=== PATIENT | male | born 1945 | race Caucasian/White ===

== ENCOUNTER 2017-12-18 08:31 | Outpatient (CLI) | payer MEDICARE, OTHER ==
[~2017-12-18 08:31] MED LIST: ASPI-1265 PO; ATOR10TA PO; CELE-193 PO; CHOL400T PO; CLOP75TA15 PO; MULT-785 PO; ZOLP10TA PO
== END 2017-12-18 23:59 | disposition home or self-care (01) ==
LOC: VAS 08:31
PROVIDERS: ATTEND Orthopaedic Surgery
DX: M79.604 Pain in right leg (principal); R59.0 Localized enlarged lymph nodes; Z79.01 Long term (current) use of anticoagulants; Z98.890 Other specified postprocedural states
CPT/HCPCS: 93970

== ENCOUNTER 2019-03-18 01:57 | Emergency (ER) | payer MEDICARE, OTHER ==
[~2019-03-18] VITALS: Ht 175.3 cm; Wt 74.0 kg
--- NOTE | 2019-03-18 02:56 | NUR ---
Patient resting comfortably on hospital [facility] waiting for MD to examin
[2019-03-18] MEDS ORDERED: SULF1TAB48 PO (03:34)
[2019-03-18] MEDS ORDERED: sulfamethoxazole/trimethoprim DS (800/160mg) tablet PO ONE (03:35)
[2019-03-18] MEDS ORDERED: LIDOcaine 1% w/epiNEPHrine 1:200,000 30ml vial IJ ONE (03:35)
[2019-03-18 04:49] VITALS: BP 169/89
== END 2019-03-18 04:53 | disposition home or self-care (01) ==
LOC: ER 01:58
DX: S81.812A Laceration without foreign body, left lower leg, initial encounter (principal); I25.10 Atherosclerotic heart disease of native coronary artery without angina pectoris; E78.00 Pure hypercholesterolemia, unspecified; Z90.89 Acquired absence of other organs; Z98.890 Other specified postprocedural states; Z88.0 Allergy status to penicillin; Z88.1 Allergy status to other antibiotic agents; Z88.5 Allergy status to narcotic agent; Z88.6 Allergy status to analgesic agent; Z88.8 Allergy status to other drugs, medicaments and biological substances; Z79.82 Long term (current) use of aspirin; Z79.899 Other long term (current) drug therapy; W26.8XXA Contact with other sharp object(s), not elsewhere classified, initial encounter; Y93.89 Activity, other specified; Y92.89 Other specified places as the place of occurrence of the external cause; Y99.8 Other external cause status
CPT/HCPCS: 12004; 99284; J3490

== ENCOUNTER 2019-03-26 12:31 | Emergency (ER) | payer MEDICARE, OTHER ==
[~2019-03-26] VITALS: Ht 175.3 cm; Wt 72.7 kg
[~2019-03-26 12:31] MED LIST changes: +SULF1TAB48 PO
[2019-03-26 12:44] VITALS: BP 131/77
== END 2019-03-26 13:06 | disposition home or self-care (01) ==
LOC: ER 12:31
DX: S81.812D Laceration without foreign body, left lower leg, subsequent encounter (principal); I25.10 Atherosclerotic heart disease of native coronary artery without angina pectoris; E78.00 Pure hypercholesterolemia, unspecified; Z98.890 Other specified postprocedural states; Z95.1 Presence of aortocoronary bypass graft; Z88.0 Allergy status to penicillin; Z88.1 Allergy status to other antibiotic agents; Z88.5 Allergy status to narcotic agent; Z79.82 Long term (current) use of aspirin; Z79.899 Other long term (current) drug therapy; W26.8XXD Contact with other sharp object(s), not elsewhere classified, subsequent encounter
CPT/HCPCS: 99281

== ENCOUNTER 2020-12-28 19:33 | Emergency (ER) | payer MEDICARE, BC ==
[~2020-12-28] VITALS: Ht 175.3 cm; Wt 71.2 kg
[~2020-12-28 19:33] MED LIST changes: -SULF1TAB48 PO
[2020-12-28 19:36] VITALS: BP 180/94
== END 2020-12-28 21:02 | disposition home or self-care (01) ==
LOC: ER 19:34
DX: S01.302A Unspecified open wound of left ear, initial encounter (principal); I25.10 Atherosclerotic heart disease of native coronary artery without angina pectoris; E78.00 Pure hypercholesterolemia, unspecified; Z98.890 Other specified postprocedural states; Z98.61 Coronary angioplasty status; Z88.0 Allergy status to penicillin; Z88.1 Allergy status to other antibiotic agents; Z88.8 Allergy status to other drugs, medicaments and biological substances; Z88.6 Allergy status to analgesic agent; Z91.041 Radiographic dye allergy status; Z91.013 Allergy to seafood; Z79.82 Long term (current) use of aspirin; Z79.899 Other long term (current) drug therapy; Z85.9 Personal history of malignant neoplasm, unspecified; W45.0XXA Nail entering through skin, initial encounter; Y93.89 Activity, other specified; Y92.89 Other specified places as the place of occurrence of the external cause; Y99.8 Other external cause status
CPT/HCPCS: 99283

== ENCOUNTER 2022-04-09 15:51 | Emergency (ER) | payer MEDICARE, BC ==
[~2022-04-09] VITALS: Ht 175.3 cm; Wt 72.7 kg
[2022-04-09 17:46] LABS: CLARITY,URINE CLEAR (Clear); COLOR,URINE YELLOW (Yellow); GLUCOSE, URINE NEGATIVE (Neg); KETONES,URINE NEGATIVE (Neg); LEUKOCYTE ESTERASE ,URINE NEGATIVE (Neg); NITRITES, URINE NEGATIVE (Neg); OCCULT BLOOD,URINE SMALL (Neg); PROTEIN,URINE NEGATIVE (Neg); UROBILINOGEN,URINE 0.2 E.U/dL (0.2-1.0)
[2022-04-09 17:48] LABS: UA COLLECTION TYPE CLN CATCH MIDSTREAM
[2022-04-09 17:52] LABS: BACTERIA,URINE FEW /HPF (Neg); SQUAMOUS EPITHELIAL CELL,UR FEW /LPF (FEW); WBC,URINE 0-4 /HPF (0-4)
[2022-04-09 17:53] LABS: MUCUS STRANDS FEW /LPF (Neg)
[2022-04-09 18:06] LABS: BASOPHILS # (AUTO) 0.1 X10'3 (0-0.2); BASOPHILS % (AUTO) 0.3 % (0-1); EOSINOPHILS # (AUTO) 0.1 X10'3 (0-0.9); EOSINOPHILS % (AUTO) 0.5 % (0-6); HEMATOCRIT 36.2 % (42.0-52.0); LYMPHOCYTES # (AUTO) 0.8 X10'3 (1.1-4.8); LYMPHOCYTES % (AUTO) 4.8 % (21-51); MEAN CORPUSCULAR HEMOGLOBIN 30.1 PG (27.0-31.0); MEAN CORPUSCULAR HGB CONC 33.1 g/dL (33.0-36.5); MEAN CORPUSCULAR VOLUME 90.9 FL (78-98); MEAN PLATELET VOLUME 7.4 FL (7.4-10.4); MONOCYTES # (AUTO) 1.2 X10'3 (0-0.9); MONOCYTES % (AUTO) 7.4 % (2-12); NEUTROPHILS # (AUTO) 14.4 X10'3 (1.8-7.7); PLATELET COUNT 369 X10'3 (140-440); RED BLOOD COUNT 3.98 X10'6 (4.70-6.10); RED CELL DISTRIBUTION WIDTH 14.9 % (11.5-14.5); WHITE BLOOD COUNT 16.5 X10'3 (4.5-11.0)
[2022-04-09 18:18] LABS: ALANINE AMINOTRANSFERASE 23 U/L (12-78); ALBUMIN 2.9 G/DL (3.4-5.0); ALBUMIN/GLOBULIN RATIO 0.8 (1.1-1.5); ALKALINE PHOSPHATASE 83 IU/L (46-116); AMYLASE 61 U/L (25-115); ANION GAP 10 (8-16); ASPARTATE AMINO TRANSFERASE 28 U/L (10-37); BILIRUBIN,TOTAL 0.5 MG/DL (0.1-1.0); BLOOD UREA NITROGEN 28 MG/DL (7-18); BUN/CREATININE RATIO 20.9 (5.4-32.0); CALCIUM 8.9 MG/DL (8.5-10.1); CHLORIDE 109 MMOL/L (99-107); CREATININE 1.34 MG/DL (0.60-1.10); GLUCOSE 104 MG/DL (70-104); LIPASE 111 U/L (73-393); POTASSIUM 4.4 MMOL/L (3.5-5.1); SODIUM 143 MMOL/L (135-145); TOTAL CARBON DIOXIDE 24.4 MMOL/L (24-32); TOTAL PROTEIN 6.7 G/DL (6.4-8.2); eGFR 52 ML/MIN
[2022-04-09] MEDS ORDERED: normal saline 1000ML IV soln IVB ONE (20:05)
[2022-04-09] MEDS ORDERED: CefTRIAXone 2gm/NS 100ml IVPB 100 ML IV ONE (20:05)
[2022-04-09 22:25] VITALS: BP 149/86
[2022-04-11] MEDS ORDERED: LEVO500T90 PO (08:10)
== END 2022-04-09 22:27 | disposition home or self-care (01) ==
LOC: ER 15:52
DX: R50.9 Fever, unspecified (principal); R53.83 Other fatigue; R19.7 Diarrhea, unspecified; R11.0 Nausea; I25.10 Atherosclerotic heart disease of native coronary artery without angina pectoris; E78.00 Pure hypercholesterolemia, unspecified; Z85.9 Personal history of malignant neoplasm, unspecified; Z98.890 Other specified postprocedural states; Z88.0 Allergy status to penicillin; Z88.1 Allergy status to other antibiotic agents; Z88.8 Allergy status to other drugs, medicaments and biological substances; Z91.013 Allergy to seafood; Z79.82 Long term (current) use of aspirin; Z79.899 Other long term (current) drug therapy
CPT/HCPCS: 36415; 71250; 74176; 80053; 81001; 82150; 83605; 83690; 84145; 85025; 87040; 99285; J0696; J7030

== ENCOUNTER 2022-04-12 08:33 | Inpatient (IN) | payer MEDICARE, BC ==
[~2022-04-12] VITALS: Ht 175.3 cm; Wt 70.5 kg
[~2022-04-12 08:33] MED LIST changes: +LEVO500T90 PO
[2022-04-12] MEDS ORDERED: ceFAZolin/D5W- 1GM premix 50 ML IV STA (08:38)
[2022-04-12 09:11] LABS: BASOPHILS # (AUTO) 0.1 X10'3 (0-0.2); BASOPHILS % (AUTO) 0.4 % (0-1); EOSINOPHILS # (AUTO) 0.1 X10'3 (0-0.9); EOSINOPHILS % (AUTO) 0.5 % (0-6); HEMOGLOBIN 12.5 g/dl (14.0-17.9); LYMPHOCYTES # (AUTO) 0.6 X10'3 (1.1-4.8); MEAN CORPUSCULAR HEMOGLOBIN 30.5 PG (27.0-31.0); MEAN CORPUSCULAR HGB CONC 33.7 g/dL (33.0-36.5); MEAN CORPUSCULAR VOLUME 90.4 FL (78-98); MEAN PLATELET VOLUME 7.6 FL (7.4-10.4); MONOCYTES # (AUTO) 0.7 X10'3 (0-0.9); MONOCYTES % (AUTO) 4.4 % (2-12); NEUTROPHILS % (AUTO) 90.7 % (42-75); PLATELET COUNT 484 X10'3 (140-440); RED BLOOD COUNT 4.09 X10'6 (4.70-6.10); RED CELL DISTRIBUTION WIDTH 14.9 % (11.5-14.5); WHITE BLOOD COUNT 15.4 X10'3 (4.5-11.0)
[2022-04-12 09:19] LABS: ALANINE AMINOTRANSFERASE 19 U/L (12-78); ALBUMIN 2.6 G/DL (3.4-5.0); ALBUMIN/GLOBULIN RATIO 0.6 (1.1-1.5); ALKALINE PHOSPHATASE 83 IU/L (46-116); ANION GAP 8 (8-16); ASPARTATE AMINO TRANSFERASE 26 U/L (10-37); BILIRUBIN,TOTAL 0.5 MG/DL (0.1-1.0); BLOOD UREA NITROGEN 20 MG/DL (7-18); BUN/CREATININE RATIO 15.7 (5.4-32.0); CALCIUM 8.7 MG/DL (8.5-10.1); CHLORIDE 107 MMOL/L (99-107); CREATININE 1.27 MG/DL (0.60-1.10); GLUCOSE 153 MG/DL (70-104); POTASSIUM 4.2 MMOL/L (3.5-5.1); SODIUM 140 MMOL/L (135-145); TOTAL CARBON DIOXIDE 24.9 MMOL/L (24-32); TOTAL PROTEIN 6.9 G/DL (6.4-8.2); eGFR 55 ML/MIN
[2022-04-12] MEDS ORDERED: PERFLUTREN PROTEIN-A MICROSPHR (Optison) 0.22 MG/ML 3ML VIAL IV ONE (09:35)
[2022-04-12] MEDS ORDERED: potassium CL 10mEq/100ml bag 100 ML IV PRN (09:35)
[2022-04-12] MEDS ORDERED: POTASSIUM BICARB 20meq eff tab 20 MEQ TABLET.EFF PO PRN ×2 (09:35)
[2022-04-12] MEDS ORDERED: magnesium 2GM in 50ml NS 50 ML IV PRN (09:35)
[2022-04-12] MEDS ORDERED: magnesium 4gm in 100ml NS 100 ML IV PRN (09:35)
[2022-04-12] MEDS ORDERED: docusate sod 100mg capsule PO PRN (09:35)
--- NOTE | 2022-04-12 10:13 | NUR ---
Dr. Enriquez, Hospitalist at bedside.
[2022-04-12] MEDS ORDERED: aspirin 81mg tab.chew PO ONE (10:15)
[2022-04-12 10:21] LABS: MAGNESIUM 2.2 MG/DL (1.5-2.4); POTASSIUM 4.1 MMOL/L (3.5-5.1)
[2022-04-12] MEDS: normal saline 1000ml 1,000 ML IV SCH ×2 (10:34→20:37)
--- NOTE | 2022-04-12 13:10 | NUR ---
bike technician at bedside.
[2022-04-12] MEDS ORDERED: RIVA20TA PO (15:44)
[2022-04-12] MEDS ORDERED: BUSP5TAB3 PO (15:44)
[2022-04-12] MEDS ORDERED: ZOLP5TAB2 PO (15:44)
[2022-04-12] MEDS ORDERED: LOSA25TA41 PO (15:44)
[2022-04-12] MEDS ORDERED: FINA5TAB11 PO (15:44)
[2022-04-12] MEDS ORDERED: CLOP75TA34 PO (15:44)
[2022-04-12] MEDS ORDERED: ACET-890 PO (15:45)
[2022-04-12] MEDS ORDERED: NAPR-996 PO (15:46)
[2022-04-12] MEDS ORDERED: CHOL20004 PO (15:46)
[2022-04-12] MEDS ORDERED: zolpidem 5mg tablet PO PRN (16:35)
[2022-04-12] MEDS: ceFAZolin/D5W- 1GM premix 50 ML IV SCH (17:44)
[2022-04-12 19:30] VITALS: BP 166/90
[2022-04-12] MEDS: acetaminophen 325mg tablet PO PRN (20:00)
[2022-04-12] MEDS: K and/or MAG REPLACEMENT MC SCH (20:00)
[2022-04-12] MEDS: busPIRone 5mg tablet PO SCH (20:00)
[2022-04-12] MEDS: atorvastatin 10mg tablet PO SCH (20:36)
[2022-04-12 21:30] LABS: BASOPHILS # (AUTO) 0.1 X10'3 (0-0.2); BASOPHILS % (AUTO) 0.5 % (0-1); EOSINOPHILS % (AUTO) 0.2 % (0-6); HEMATOCRIT 32.9 % (42.0-52.0); HEMOGLOBIN 10.9 g/dl (14.0-17.9); LYMPHOCYTES # (AUTO) 0.6 X10'3 (1.1-4.8); LYMPHOCYTES % (AUTO) 4.4 % (21-51); MEAN CORPUSCULAR HEMOGLOBIN 30.2 PG (27.0-31.0); MEAN CORPUSCULAR HGB CONC 33.3 g/dL (33.0-36.5); MEAN CORPUSCULAR VOLUME 90.6 FL (78-98); MEAN PLATELET VOLUME 7.6 FL (7.4-10.4); MONOCYTES # (AUTO) 1.4 X10'3 (0-0.9); MONOCYTES % (AUTO) 9.6 % (2-12); NEUTROPHILS # (AUTO) 12.3 X10'3 (1.8-7.7); NEUTROPHILS % (AUTO) 85.3 % (42-75); PLATELET COUNT 430 X10'3 (140-440); RED BLOOD COUNT 3.63 X10'6 (4.70-6.10); RED CELL DISTRIBUTION WIDTH 15.1 % (11.5-14.5); WHITE BLOOD COUNT 14.4 X10'3 (4.5-11.0)
[2022-04-12 21:37] LABS: APTT 43 SECONDS (22-32)
[2022-04-12 22:00] VITALS: BP 125/78
[2022-04-12] MEDS: zolpidem 5mg tablet PO PRN (22:16)
[2022-04-13] VITALS (11 sets, daily range): BP systolic 114–168; BP diastolic 63–91
[2022-04-13] MEDS: ceFAZolin/D5W- 1GM premix 50 ML IV SCH ×3 (00:13→15:38)
[2022-04-13] MEDS: zolpidem 5mg tablet PO PRN ×3 (02:40→22:15)
--- NOTE | 2022-04-13 06:23 | NUR ---
Problems reprioritized. Patient report given, questions answered & plan of care reviewed with JOBY. Addendum: 04/13/22 at 0624 by Kirby Whitney RN Amended: Links added.
[2022-04-13 06:39] LABS: BASOPHILS % (AUTO) 0.2 % (0-1); EOSINOPHILS % (AUTO) 0.1 % (0-6); HEMATOCRIT 32.2 % (42.0-52.0); HEMOGLOBIN 10.9 g/dl (14.0-17.9); LYMPHOCYTES # (AUTO) 0.8 X10'3 (1.1-4.8); LYMPHOCYTES % (AUTO) 6.1 % (21-51); MEAN CORPUSCULAR HGB CONC 33.8 g/dL (33.0-36.5); MEAN CORPUSCULAR VOLUME 88.8 FL (78-98); MEAN PLATELET VOLUME 7.7 FL (7.4-10.4); MONOCYTES # (AUTO) 1.3 X10'3 (0-0.9); NEUTROPHILS # (AUTO) 11.2 X10'3 (1.8-7.7); NEUTROPHILS % (AUTO) 83.6 % (42-75); PLATELET COUNT 462 X10'3 (140-440); RED BLOOD COUNT 3.62 X10'6 (4.70-6.10); RED CELL DISTRIBUTION WIDTH 14.6 % (11.5-14.5); WHITE BLOOD COUNT 13.4 X10'3 (4.5-11.0)
[2022-04-13 06:51] LABS: ALANINE AMINOTRANSFERASE 17 U/L (12-78); ALBUMIN 2.2 G/DL (3.4-5.0); ALBUMIN/GLOBULIN RATIO 0.6 (1.1-1.5); ALKALINE PHOSPHATASE 71 IU/L (46-116); ANION GAP 9 (8-16); ASPARTATE AMINO TRANSFERASE 27 U/L (10-37); BILIRUBIN,TOTAL 0.4 MG/DL (0.1-1.0); BLOOD UREA NITROGEN 20 MG/DL (7-18); BUN/CREATININE RATIO 18.5 (5.4-32.0); CALCIUM 8.4 MG/DL (8.5-10.1); CHLORIDE 108 MMOL/L (99-107); CREATININE 1.08 MG/DL (0.60-1.10); GLUCOSE 99 MG/DL (70-104); MAGNESIUM 2.1 MG/DL (1.5-2.4); POTASSIUM 3.6 MMOL/L (3.5-5.1); SODIUM 139 MMOL/L (135-145); TOTAL CARBON DIOXIDE 22.4 MMOL/L (24-32); eGFR 66 ML/MIN
--- NOTE | 2022-04-13 07:31 | NUR ---
Patient in room PCU 3013. I have received report from LINDSAY ZAMARRIPA, and had the opportunity to ask questions and assume patient care.
[2022-04-13] MEDS ORDERED: atorvastatin 10mg tablet PO SCH (08:00)
[2022-04-13] MEDS: K and/or MAG REPLACEMENT MC SCH ×2 (08:00→20:00)
[2022-04-13] MEDS ORDERED: clopidogrel 75mg tablet PO SCH (08:00)
[2022-04-13] MEDS: ondansetron/PF 4mg/2ml inj IV PRN (08:36)
[2022-04-13] MEDS: multivitamins, therapeutics tablet PO SCH (08:40)
[2022-04-13] MEDS: rivaroxaban 20mg tablet PO SCH (08:40)
[2022-04-13] MEDS: finasteride 5mg tablet PO SCH (08:40)
[2022-04-13] MEDS: aspirin 81mg, enteric-coated 1 TAB TABLET.DR PO SCH (08:41)
[2022-04-13] MEDS: busPIRone 5mg tablet PO SCH ×2 (08:41→20:44)
[2022-04-13] MEDS: losartan 25mg tablet PO SCH (08:41)
[2022-04-13] MEDS: cholecalciferol (vitamin D3) 1,000 unit (25mcg) tablet PO SCH (08:41)
[2022-04-13] MEDS: clopidogrel 75mg tablet PO SCH (08:42)
--- NOTE | 2022-04-13 09:04 | NUR ---
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 Currently on Heart Healthy diet pending PO intake. May recommend ONS vs double protein w/ meals depending on PO trends. [facility] 04/12. No nutrition intervention implemented at this time. Will continue to monitor. Recs: 1. Continue Heart Healthy diet as tolerated 2. Monitor need for ONS/protein pending PO trends 3. Bowel care per rx 4. Scaled wts Addendum: 04/13/22 at [address] Amended: Links added.
[2022-04-13] MEDS ORDERED: MIDAZolam 1mg/ml 10ml vial IV ONE (09:50)
[2022-04-13] MEDS ORDERED: morphine 10mg/ml inj. IV ONE (09:50)
--- NOTE | 2022-04-13 09:53 | NUR ---
ORDERS FOR MORPHINE AND VERSED PUT IN PER DR. HOUSER FOR BEDSIDE DELILAH.
[2022-04-13] MEDS ORDERED: morphine 10mg/ml inj. ONE (09:57)
[2022-04-13] MEDS ORDERED: LORazepam 2 mg/ml vial ONE (09:58)
[2022-04-13] MEDS ORDERED: LORazepam 2 mg/ml vial IV ONE (10:25)
--- NOTE | 2022-04-13 14:30 | NUR ---
Paged Dr Nelson that patient was having tremors Current vitals 176/97 HR 92 SPO2 90 on RA placed patient on 2L oxygen. RR 18. Blood glucose 122. Bladder scanned patient because he said he felt like he couldn't void. Patients bladder scan showed 122ml's.
--- NOTE | 2022-04-13 15:01 | NUR ---
Dr Nelson saw patient states he is doing better at bedside states shakes are coming and going. Per Dr Nelson just keep an eye on his vitals. Dr Nelson aware temp of 99.2, no new orders.
[2022-04-13] MEDS: atorvastatin 10mg tablet PO SCH (20:43)
[2022-04-13] MEDS: acetaminophen 325mg tablet PO PRN (22:15)
[2022-04-14 02:00] VITALS: BP 139/76
[2022-04-14 06:00] VITALS: BP 143/83
[2022-04-14 06:37] LABS: BASOPHILS # (AUTO) 0.1 X10'3 (0-0.2); BASOPHILS % (AUTO) 0.5 % (0-1); EOSINOPHILS % (AUTO) 0.2 % (0-6); HEMATOCRIT 33.2 % (42.0-52.0); HEMOGLOBIN 11.1 g/dl (14.0-17.9); LYMPHOCYTES # (AUTO) 1.1 X10'3 (1.1-4.8); LYMPHOCYTES % (AUTO) 9.3 % (21-51); MEAN CORPUSCULAR HEMOGLOBIN 30.1 PG (27.0-31.0); MEAN CORPUSCULAR HGB CONC 33.5 g/dL (33.0-36.5); MEAN CORPUSCULAR VOLUME 89.8 FL (78-98); MEAN PLATELET VOLUME 7.4 FL (7.4-10.4); MONOCYTES # (AUTO) 1.6 X10'3 (0-0.9); MONOCYTES % (AUTO) 13.9 % (2-12); NEUTROPHILS # (AUTO) 8.7 X10'3 (1.8-7.7); NEUTROPHILS % (AUTO) 76.1 % (42-75); PLATELET COUNT 437 X10'3 (140-440); RED CELL DISTRIBUTION WIDTH 14.9 % (11.5-14.5); WHITE BLOOD COUNT 11.4 X10'3 (4.5-11.0)
--- NOTE | 2022-04-14 06:44 | NUR ---
Patient in room PCU 3013. I have received report from LINDSAY JIM, and had the opportunity to ask questions and assume patient care.
[2022-04-14 07:39] LABS: ALANINE AMINOTRANSFERASE 13 U/L (12-78); ALBUMIN/GLOBULIN RATIO 0.6 (1.1-1.5); ALKALINE PHOSPHATASE 65 IU/L (46-116); ANION GAP 5 (8-16); ASPARTATE AMINO TRANSFERASE 33 U/L (10-37); BILIRUBIN,TOTAL 0.3 MG/DL (0.1-1.0); BLOOD UREA NITROGEN 20 MG/DL (7-18); BUN/CREATININE RATIO 16.7 (5.4-32.0); CALCIUM 8.2 MG/DL (8.5-10.1); CHLORIDE 108 MMOL/L (99-107); GLUCOSE 103 MG/DL (70-104); POTASSIUM 3.8 MMOL/L (3.5-5.1); SODIUM 138 MMOL/L (135-145); TOTAL CARBON DIOXIDE 24.6 MMOL/L (24-32); TOTAL PROTEIN 5.6 G/DL (6.4-8.2); eGFR 59 ML/MIN
[2022-04-14] MEDS: K and/or MAG REPLACEMENT MC SCH ×2 (08:00→20:35)
[2022-04-14] MEDS: ceFAZolin/D5W- 1GM premix 50 ML IV SCH ×2 (08:12)
[2022-04-14] MEDS: clopidogrel 75mg tablet PO SCH (08:14)
[2022-04-14] MEDS: finasteride 5mg tablet PO SCH (08:14)
[2022-04-14] MEDS: multivitamins, therapeutics tablet PO SCH (08:14)
[2022-04-14] MEDS: cholecalciferol (vitamin D3) 1,000 unit (25mcg) tablet PO SCH (08:14)
[2022-04-14] MEDS: rivaroxaban 20mg tablet PO SCH (08:15)
[2022-04-14] MEDS: losartan 25mg tablet PO SCH (08:15)
[2022-04-14] MEDS: aspirin 81mg, enteric-coated 1 TAB TABLET.DR PO SCH (08:15)
[2022-04-14] MEDS: busPIRone 5mg tablet PO SCH ×2 (08:15→20:26)
--- NOTE | 2022-04-14 09:39 | NUR ---
PAGE SENT PAGER ID: [phone] MESSAGE: [id number], SOLO KEITH, CRITICAL LAB: POSITIVE AROEBIC GRAM COOCI IN [facility] FROM 04/12, 11:48, 20 HOUR. THANK YOU, JOBY [id number]
[2022-04-14 11:00] VITALS: BP 135/76
[2022-04-14] MEDS ORDERED: methylPREDNISolone sod succ 125mg/2ml vial IV ONE (11:00)
[2022-04-14] MEDS ORDERED: diphenhydrAMINE 50 mg/ml inj IV ONE (11:00)
[2022-04-14] MEDS ORDERED: iohexol 350MG/ML 100ml bottle IV ONE ×2 (13:11)
--- NOTE | 2022-04-14 13:50 | NUR ---
pt to CT on monitor with RN, 136/75, HR 77 sr no ectopy, RR 18, 90% on room air, placed pt on 4liters nasal cannula, increased to 94%, pt is resting quietly, resp even and unlabored, skin p/w/d
--- NOTE | 2022-04-14 14:00 | NUR ---
1400 pt able to lie flat, 123/62, 94% on 4 liters nasal cannula, RR 18, HR 85 1410 134/62, RR 18, 94% on 4 liters nasal cannula, HR 77
--- NOTE | 2022-04-14 14:05 | NUR ---
PT OFF UNIT FOR CT. ACCOMPANIED BY LINDSAY BARBOSA AND VS MACHINE.
--- NOTE | 2022-04-14 14:22 | NUR ---
pt is back on PCU room 3013, pt transferred self with min assist from wheelchair to bed, report to Lisa MONTOYA, pt tolerated test well, resp even and unlabored, talking full sentences, clear speech.
[2022-04-14] MEDS: rifampin 300mg capsule PO SCH ×2 (14:30→20:27)
[2022-04-14] MEDS: NORMAL SALINE IV SCH ×2 (14:30→20:27)
[2022-04-14] MEDS: GENTAMICIN IV SCH ×2 (14:30→20:27)
[2022-04-14 15:00] VITALS: BP 127/57
[2022-04-14] MEDS: cefazolin/dext.iso 2gm/100ml 100 ML IV SCH ×2 (16:17→23:34)
[2022-04-14 18:00] VITALS: BP 123/63
--- NOTE | 2022-04-14 18:24 | NUR ---
Problems reprioritized. Patient report given, questions answered & plan of care reviewed with LINDSAY JIM.
[2022-04-14] MEDS: enoxaparin 30mg/0.3ml syringe SUBCUT SCH (20:27)
[2022-04-14] MEDS: atorvastatin 10mg tablet PO SCH (20:27)
[2022-04-14] MEDS: enoxaparin 40mg/0.4ml syringe SUBCUT SCH (20:28)
[2022-04-14 22:00] VITALS: BP 122/72
[2022-04-14] MEDS: zolpidem 5mg tablet PO PRN (22:31)
[2022-04-15 02:00] VITALS: BP 147/87
[2022-04-15] MEDS: zolpidem 5mg tablet PO PRN ×2 (03:37→23:02)
[2022-04-15] MEDS: GENTAMICIN IV SCH ×2 (05:11→20:36)
[2022-04-15] MEDS: NORMAL SALINE IV SCH ×2 (05:11→20:36)
[2022-04-15] MEDS ORDERED: MESSAGE TO NURSING IV ONE ×2 (05:30→12:30)
[2022-04-15 06:00] VITALS: BP 111/59
--- NOTE | 2022-04-15 06:10 | NUR ---
Patient in room PCU 3013. I have received report from LINDSAY Pardo and had the opportunity to ask questions and assume patient care.
[2022-04-15 06:54] LABS: BASOPHILS % (AUTO) 0.2 % (0-1); EOSINOPHILS % (AUTO) 0 % (0-6); HEMATOCRIT 31.8 % (42.0-52.0); HEMOGLOBIN 10.8 g/dl (14.0-17.9); LYMPHOCYTES # (AUTO) 1.1 X10'3 (1.1-4.8); MEAN CORPUSCULAR HEMOGLOBIN 30.3 PG (27.0-31.0); MEAN CORPUSCULAR HGB CONC 33.9 g/dL (33.0-36.5); MEAN CORPUSCULAR VOLUME 89.4 FL (78-98); MEAN PLATELET VOLUME 7.8 FL (7.4-10.4); MONOCYTES # (AUTO) 0.6 X10'3 (0-0.9); MONOCYTES % (AUTO) 4.5 % (2-12); NEUTROPHILS # (AUTO) 12.2 X10'3 (1.8-7.7); NEUTROPHILS % (AUTO) 87.3 % (42-75); PLATELET COUNT 463 X10'3 (140-440); RED BLOOD COUNT 3.55 X10'6 (4.70-6.10); RED CELL DISTRIBUTION WIDTH 14.7 % (11.5-14.5)
[2022-04-15 07:11] LABS: ALANINE AMINOTRANSFERASE 14 U/L (12-78); ALBUMIN 1.9 G/DL (3.4-5.0); ALBUMIN/GLOBULIN RATIO 0.5 (1.1-1.5); ALKALINE PHOSPHATASE 65 IU/L (46-116); ANION GAP 7 (8-16); ASPARTATE AMINO TRANSFERASE 35 U/L (10-37); BILIRUBIN,TOTAL 0.4 MG/DL (0.1-1.0); BLOOD UREA NITROGEN 23 MG/DL (7-18); CALCIUM 8.1 MG/DL (8.5-10.1); CHLORIDE 110 MMOL/L (99-107); GLUCOSE 130 MG/DL (70-104); MAGNESIUM 2.1 MG/DL (1.5-2.4); POTASSIUM 3.7 MMOL/L (3.5-5.1); SODIUM 140 MMOL/L (135-145); TOTAL CARBON DIOXIDE 22.7 MMOL/L (24-32); TOTAL PROTEIN 5.6 G/DL (6.4-8.2); eGFR 72 ML/MIN
[2022-04-15] MEDS: K and/or MAG REPLACEMENT MC SCH ×2 (08:00→20:00)
--- NOTE | 2022-04-15 09:05 | NUR ---
Reassessment: Pt continues on heart healthy diet and overall eating well with average 75% PO intake which meats roughly 86% estimated energy needs and 76% estimated protein needs. See below for nutrition interventions that were d/w dietary to further assist with meeting estimated nutrient needs. [facility] 04/14. Will continue to follow and monitor need for further nutrition intervention. Recommendations: 1. Continue heart healthy diet 2. Yogurt WB, cottage cheese WL, smoothie WS 3. Bowel care per rx 4. Scaled wt this admit; subsequent weekly scaled weights Addendum: 04/15/22 at [address] Amended: Links added.
[2022-04-15] MEDS: cefazolin/dext.iso 2gm/100ml 100 ML IV SCH ×3 (09:40→23:06)
[2022-04-15] MEDS: cholecalciferol (vitamin D3) 1,000 unit (25mcg) tablet PO SCH (09:43)
[2022-04-15] MEDS: busPIRone 5mg tablet PO SCH ×2 (09:43→20:37)
[2022-04-15] MEDS: rifampin 300mg capsule PO SCH ×3 (09:45→20:37)
[2022-04-15] MEDS: aspirin 81mg, enteric-coated 1 TAB TABLET.DR PO SCH (09:45)
[2022-04-15] MEDS: multivitamins, therapeutics tablet PO SCH (09:45)
[2022-04-15] MEDS: finasteride 5mg tablet PO SCH (09:46)
[2022-04-15] MEDS: enoxaparin 40mg/0.4ml syringe SUBCUT SCH ×2 (09:46→20:38)
[2022-04-15] MEDS: losartan 25mg tablet PO SCH (09:46)
[2022-04-15] MEDS: enoxaparin 30mg/0.3ml syringe SUBCUT SCH ×2 (09:47→20:38)
[2022-04-15 11:00] VITALS: BP 114/77
[2022-04-15 14:00] VITALS: BP 126/79
[2022-04-15 18:00] VITALS: BP 166/92
--- NOTE | 2022-04-15 19:00 | NUR ---
Problems reprioritized. Patient report given, questions answered & plan of care reviewed with LINDSAY Pardo.
[2022-04-15] MEDS: atorvastatin 10mg tablet PO SCH (20:37)
[2022-04-15 22:00] VITALS: BP 136/74
[2022-04-16 06:00] VITALS: BP 123/90
--- NOTE | 2022-04-16 06:30 | NUR ---
Patient in room PCU 3013. I have received report from LINDSAY Pardo and had the opportunity to ask questions and assume patient care.
[2022-04-16 07:12] LABS: BASOPHILS % (AUTO) 0.2 % (0-1); EOSINOPHILS % (AUTO) 0.2 % (0-6); HEMATOCRIT 33.6 % (42.0-52.0); HEMOGLOBIN 11.3 g/dl (14.0-17.9); LYMPHOCYTES # (AUTO) 1.1 X10'3 (1.1-4.8); LYMPHOCYTES % (AUTO) 9.2 % (21-51); MEAN CORPUSCULAR HEMOGLOBIN 29.8 PG (27.0-31.0); MEAN CORPUSCULAR HGB CONC 33.8 g/dL (33.0-36.5); MEAN CORPUSCULAR VOLUME 88.1 FL (78-98); MEAN PLATELET VOLUME 7.9 FL (7.4-10.4); NEUTROPHILS # (AUTO) 10.3 X10'3 (1.8-7.7); NEUTROPHILS % (AUTO) 82.4 % (42-75); PLATELET COUNT 506 X10'3 (140-440); RED BLOOD COUNT 3.81 X10'6 (4.70-6.10); RED CELL DISTRIBUTION WIDTH 14.9 % (11.5-14.5); WHITE BLOOD COUNT 12.5 X10'3 (4.5-11.0)
[2022-04-16 07:28] LABS: ALANINE AMINOTRANSFERASE 10 U/L (12-78); ALBUMIN 1.9 G/DL (3.4-5.0); ALBUMIN/GLOBULIN RATIO 0.5 (1.1-1.5); ALKALINE PHOSPHATASE 63 IU/L (46-116); ANION GAP 9 (8-16); ASPARTATE AMINO TRANSFERASE 33 U/L (10-37); BILIRUBIN,TOTAL 0.6 MG/DL (0.1-1.0); BLOOD UREA NITROGEN 20 MG/DL (7-18); CALCIUM 7.7 MG/DL (8.5-10.1); CHLORIDE 107 MMOL/L (99-107); CREATININE 0.91 MG/DL (0.60-1.10); GLUCOSE 89 MG/DL (70-104); MAGNESIUM 1.7 MG/DL (1.5-2.4); POTASSIUM 3.2 MMOL/L (3.5-5.1); SODIUM 138 MMOL/L (135-145); TOTAL CARBON DIOXIDE 22.3 MMOL/L (24-32); TOTAL PROTEIN 5.4 G/DL (6.4-8.2); eGFR 81 ML/MIN
[2022-04-16] MEDS: K and/or MAG REPLACEMENT MC SCH ×2 (08:00→20:47)
[2022-04-16] MEDS ORDERED: ondansetron/PF 4mg/2ml inj IV PRN (08:20)
[2022-04-16] MEDS ORDERED: potassium CL 10mEq/100ml bag 100 ML IV PRN (08:20)
[2022-04-16] MEDS ORDERED: magnesium 4gm in 100ml NS 100 ML IV PRN (08:20)
[2022-04-16] MEDS ORDERED: magnesium Cl slow-release 64mg tablet PO PRN (08:20)
[2022-04-16] MEDS ORDERED: busPIRone 5mg tablet PO ONE (08:20)
[2022-04-16] MEDS ORDERED: potassium Cl 20 mEq SR tablet PO PRN (08:20)
[2022-04-16] MEDS ORDERED: magnesium 2GM in 50ml NS 50 ML IV PRN (08:20)
[2022-04-16] MEDS: ondansetron/PF 4mg/2ml inj IV PRN (08:46)
[2022-04-16] MEDS: rifampin 300mg capsule PO SCH ×3 (08:46→20:42)
[2022-04-16] MEDS: finasteride 5mg tablet PO SCH (08:46)
[2022-04-16] MEDS: busPIRone 5mg tablet PO SCH ×2 (08:47→20:42)
[2022-04-16] MEDS: aspirin 81mg, enteric-coated 1 TAB TABLET.DR PO SCH (08:47)
[2022-04-16] MEDS: cholecalciferol (vitamin D3) 1,000 unit (25mcg) tablet PO SCH (08:47)
[2022-04-16] MEDS: NORMAL SALINE IV SCH ×3 (08:48→19:42)
[2022-04-16] MEDS: cefazolin/dext.iso 2gm/100ml 100 ML IV SCH ×3 (08:48→23:10)
[2022-04-16] MEDS: losartan 25mg tablet PO SCH (08:48)
[2022-04-16] MEDS: multivitamins, therapeutics tablet PO SCH (08:48)
[2022-04-16] MEDS: GENTAMICIN IV SCH ×3 (08:48→19:42)
[2022-04-16] MEDS: enoxaparin 40mg/0.4ml syringe SUBCUT SCH ×2 (08:49→20:43)
[2022-04-16] MEDS: enoxaparin 30mg/0.3ml syringe SUBCUT SCH ×2 (08:49→20:43)
[2022-04-16] MEDS: potassium Cl 20 mEq SR tablet PO PRN ×3 (09:34→17:05)
[2022-04-16 10:00] VITALS: BP 151/91
[2022-04-16] MEDS ORDERED: LORazepam 2 mg/ml vial IV PRN ×2 (13:30)
[2022-04-16 14:00] VITALS: BP 137/92
[2022-04-16] MEDS: LORazepam 0.5 MG tablet PO PRN ×2 (17:24→23:10)
[2022-04-16 18:00] VITALS: BP 155/86
--- NOTE | 2022-04-16 18:40 | NUR ---
Problems reprioritized. Patient report given, questions answered & plan of care reviewed with LINDSAY Pardo.
[2022-04-16] MEDS ORDERED: MESSAGE TO NURSING IV ONE (19:30)
[2022-04-16] MEDS: atorvastatin 10mg tablet PO SCH (20:42)
[2022-04-16 22:00] VITALS: BP 147/95
[2022-04-17 02:00] VITALS: BP 164/87
[2022-04-17 04:53] LABS: EOSINOPHILS # (AUTO) 0.1 X10'3 (0-0.9); HEMOGLOBIN 11.3 g/dl (14.0-17.9); MEAN CORPUSCULAR VOLUME 87.2 FL (78-98); RED CELL DISTRIBUTION WIDTH 14.9 % (11.5-14.5); WHITE BLOOD COUNT 10.8 X10'3 (4.5-11.0)
[2022-04-17 04:54] LABS: BASOPHILS % (AUTO) 0.4 % (0-1); EOSINOPHILS % (AUTO) 1.4 % (0-6); HEMATOCRIT 33.2 % (42.0-52.0); LYMPHOCYTES % (AUTO) 9.4 % (21-51); MEAN CORPUSCULAR HEMOGLOBIN 29.8 PG (27.0-31.0); MEAN CORPUSCULAR HGB CONC 34.2 g/dL (33.0-36.5); MEAN PLATELET VOLUME 7.9 FL (7.4-10.4); MONOCYTES % (AUTO) 9.4 % (2-12); NEUTROPHILS # (AUTO) 8.6 X10'3 (1.8-7.7); NEUTROPHILS % (AUTO) 79.4 % (42-75); PLATELET COUNT 461 X10'3 (140-440)
[2022-04-17 05:08] LABS: ALANINE AMINOTRANSFERASE 12 U/L (12-78); ALBUMIN/GLOBULIN RATIO 0.5 (1.1-1.5); ALKALINE PHOSPHATASE 67 IU/L (46-116); ANION GAP 7 (8-16); ASPARTATE AMINO TRANSFERASE 36 U/L (10-37); BILIRUBIN,TOTAL 0.8 MG/DL (0.1-1.0); BLOOD UREA NITROGEN 17 MG/DL (7-18); BUN/CREATININE RATIO 17.2 (5.4-32.0); CALCIUM 8.2 MG/DL (8.5-10.1); CHLORIDE 104 MMOL/L (99-107); CREATININE 0.99 MG/DL (0.60-1.10); GLUCOSE 101 MG/DL (70-104); MAGNESIUM 1.9 MG/DL (1.5-2.4); SODIUM 137 MMOL/L (135-145); TOTAL CARBON DIOXIDE 25.7 MMOL/L (24-32); TOTAL PROTEIN 5.7 G/DL (6.4-8.2); eGFR 73 ML/MIN
[2022-04-17 06:00] VITALS: BP 175/98
--- NOTE | 2022-04-17 06:30 | NUR ---
Patient in room PCU 3013. I have received report from LINDSAY Pardo and had the opportunity to ask questions and assume patient care.
[2022-04-17] MEDS: K and/or MAG REPLACEMENT MC SCH ×2 (08:00→20:00)
[2022-04-17] MEDS ORDERED: acetaminophen 325mg tablet PO PRN (09:00)
[2022-04-17] MEDS: cefazolin/dext.iso 2gm/100ml 100 ML IV SCH ×3 (09:05→23:55)
[2022-04-17] MEDS: GENTAMICIN IV SCH ×2 (09:05→21:26)
[2022-04-17] MEDS: NORMAL SALINE IV SCH ×2 (09:05→21:26)
[2022-04-17] MEDS: multivitamins, therapeutics tablet PO SCH (09:06)
[2022-04-17] MEDS: aspirin 81mg, enteric-coated 1 TAB TABLET.DR PO SCH (09:06)
[2022-04-17] MEDS: losartan 25mg tablet PO SCH (09:06)
[2022-04-17] MEDS: busPIRone 5mg tablet PO SCH ×2 (09:06→21:26)
[2022-04-17] MEDS: enoxaparin 40mg/0.4ml syringe SUBCUT SCH ×2 (09:07→21:25)
[2022-04-17] MEDS: cholecalciferol (vitamin D3) 1,000 unit (25mcg) tablet PO SCH (09:07)
[2022-04-17] MEDS: rifampin 300mg capsule PO SCH ×3 (09:07→21:29)
[2022-04-17] MEDS: finasteride 5mg tablet PO SCH (09:07)
[2022-04-17] MEDS: enoxaparin 30mg/0.3ml syringe SUBCUT SCH ×2 (09:08→21:25)
[2022-04-17 10:00] VITALS: BP 131/74
[2022-04-17 14:00] VITALS: BP 148/78
[2022-04-17] MEDS: LORazepam 0.5 MG tablet PO PRN ×2 (17:35→21:50)
[2022-04-17 18:00] VITALS: BP 148/79
--- NOTE | 2022-04-17 18:50 | NUR ---
Problems reprioritized. Patient report given, questions answered & plan of care reviewed with LINDSAY Hernandes.
[2022-04-17] MEDS: atorvastatin 10mg tablet PO SCH (21:26)
--- NOTE | 2022-04-17 21:50 | NUR ---
DR. Beltran ordered IV Lasix 20mg to be given at 0300 one time. He ordered a two view CXR for AM due to pt elevated Pbnp and his past episode of SOB on days.
--- NOTE | 2022-04-17 21:55 | NUR ---
Pt running an oral temp of 101.6 giving Tylenol for fever.
[2022-04-17] MEDS: acetaminophen 325mg tablet PO PRN (21:58)
[2022-04-17 22:00] VITALS: BP 161/86
--- NOTE | 2022-04-18 00:05 | NUR ---
Pt oral temp now 100.5 with Tylenol.
[2022-04-18 02:00] VITALS: BP 145/83
[2022-04-18] MEDS ORDERED: furosemide 20 MG/2 ML vial IV ONE (03:00)
[2022-04-18 03:20] VITALS: BP 169/99
[2022-04-18 05:07] LABS: BASOPHILS % (AUTO) 0.4 % (0-1); EOSINOPHILS # (AUTO) 0.3 X10'3 (0-0.9); EOSINOPHILS % (AUTO) 2.4 % (0-6); HEMATOCRIT 36.5 % (42.0-52.0); HEMOGLOBIN 12.3 g/dl (14.0-17.9); LYMPHOCYTES # (AUTO) 1.2 X10'3 (1.1-4.8); LYMPHOCYTES % (AUTO) 10.1 % (21-51); MEAN CORPUSCULAR HEMOGLOBIN 29.5 PG (27.0-31.0); MEAN CORPUSCULAR HGB CONC 33.8 g/dL (33.0-36.5); MEAN CORPUSCULAR VOLUME 87.2 FL (78-98); MEAN PLATELET VOLUME 7.5 FL (7.4-10.4); MONOCYTES # (AUTO) 1.2 X10'3 (0-0.9); NEUTROPHILS # (AUTO) 9.2 X10'3 (1.8-7.7); NEUTROPHILS % (AUTO) 77.1 % (42-75); PLATELET COUNT 506 X10'3 (140-440); RED BLOOD COUNT 4.19 X10'6 (4.70-6.10); RED CELL DISTRIBUTION WIDTH 14.7 % (11.5-14.5)
[2022-04-18 05:16] LABS: ALANINE AMINOTRANSFERASE 49 U/L (12-78); ALBUMIN 2.4 G/DL (3.4-5.0); ALBUMIN/GLOBULIN RATIO 0.6 (1.1-1.5); ALKALINE PHOSPHATASE 77 IU/L (46-116); ANION GAP 8 (8-16); ASPARTATE AMINO TRANSFERASE 114 U/L (10-37); BILIRUBIN,TOTAL 0.8 MG/DL (0.1-1.0); BLOOD UREA NITROGEN 16 MG/DL (7-18); BUN/CREATININE RATIO 14.3 (5.4-32.0); CALCIUM 8.4 MG/DL (8.5-10.1); CHLORIDE 102 MMOL/L (99-107); CREATININE 1.12 MG/DL (0.60-1.10); GLUCOSE 97 MG/DL (70-104); MAGNESIUM 1.9 MG/DL (1.5-2.4); POTASSIUM 3.6 MMOL/L (3.5-5.1); SODIUM 136 MMOL/L (135-145); TOTAL CARBON DIOXIDE 26.3 MMOL/L (24-32); TOTAL PROTEIN 6.7 G/DL (6.4-8.2); eGFR 64 ML/MIN
--- NOTE | 2022-04-18 06:22 | NUR ---
Problems reprioritized. Patient report given, questions answered & plan of care reviewed with LINDSAY Gutierrez. Addendum: 04/18/22 at 0651 by Greta Richardson RN LINDSAY Gutierrez aware that pt was febrile last night and to pass on to dayshift
[2022-04-18 06:30] VITALS: BP 140/88
--- NOTE | 2022-04-18 06:57 | NUR ---
Patient in room PCU 3013. I have received report from ravi hoyt and had the opportunity to ask questions and assume patient care.
[2022-04-18] MEDS: K and/or MAG REPLACEMENT MC SCH ×2 (08:00→20:00)
[2022-04-18] MEDS: cholecalciferol (vitamin D3) 1,000 unit (25mcg) tablet PO SCH (08:07)
[2022-04-18] MEDS: multivitamins, therapeutics tablet PO SCH (08:07)
[2022-04-18] MEDS: aspirin 81mg, enteric-coated 1 TAB TABLET.DR PO SCH (08:07)
[2022-04-18] MEDS: busPIRone 5mg tablet PO SCH ×2 (08:07→21:52)
[2022-04-18] MEDS: rifampin 300mg capsule PO SCH ×3 (08:07→21:53)
[2022-04-18] MEDS: losartan 25mg tablet PO SCH (08:07)
[2022-04-18] MEDS: enoxaparin 40mg/0.4ml syringe SUBCUT SCH ×2 (08:08→21:53)
[2022-04-18] MEDS: enoxaparin 30mg/0.3ml syringe SUBCUT SCH ×2 (08:08→21:52)
[2022-04-18] MEDS: finasteride 5mg tablet PO SCH (08:08)
[2022-04-18] MEDS: cefazolin/dext.iso 2gm/100ml 100 ML IV SCH ×2 (08:10→16:43)
[2022-04-18] MEDS: GENTAMICIN IV SCH ×2 (08:10→21:51)
[2022-04-18] MEDS: NORMAL SALINE IV SCH ×2 (08:10→21:51)
[2022-04-18 11:07] VITALS: BP 127/72
--- NOTE | 2022-04-18 12:12 | NUR ---
NOTIFIED DR LOERA RE: POSITIVE COVID, STATES HE WILL NOTIFY DR MINOR AND CM
[2022-04-18 14:00] VITALS: BP 143/76
[2022-04-18 18:00] VITALS: BP 137/76
--- NOTE | 2022-04-18 18:39 | NUR ---
Problems reprioritized. Patient report given, questions answered & plan of care reviewed with CAMILO MONTOYA.
[2022-04-18] MEDS ORDERED: NORMAL SALINE IV SCH (20:00)
[2022-04-18] MEDS ORDERED: GENTAMICIN IV SCH (20:00)
[2022-04-18] MEDS: atorvastatin 10mg tablet PO SCH (21:53)
[2022-04-19] VITALS (7 sets, daily range): BP systolic 116–151; BP diastolic 64–83
[2022-04-19] MEDS: cefazolin/dext.iso 2gm/100ml 100 ML IV SCH ×3 (00:43→16:50)
[2022-04-19] MEDS: acetaminophen 325mg tablet PO PRN (01:43)
--- NOTE | 2022-04-19 07:03 | NUR ---
Problems reprioritized. Patient report given, questions answered & plan of care reviewed with LINDSAY Mart.
[2022-04-19] MEDS: NORMAL SALINE IV SCH ×2 (07:29→21:00)
[2022-04-19] MEDS: GENTAMICIN IV SCH ×2 (07:29→21:00)
[2022-04-19] MEDS: multivitamins, therapeutics tablet PO SCH (07:30)
[2022-04-19] MEDS: losartan 25mg tablet PO SCH (07:30)
[2022-04-19] MEDS: cholecalciferol (vitamin D3) 1,000 unit (25mcg) tablet PO SCH (07:30)
[2022-04-19] MEDS: rifampin 300mg capsule PO SCH ×3 (07:30→20:58)
[2022-04-19] MEDS: busPIRone 5mg tablet PO SCH ×2 (07:30→20:58)
[2022-04-19] MEDS: aspirin 81mg, enteric-coated 1 TAB TABLET.DR PO SCH (07:30)
[2022-04-19] MEDS: enoxaparin 30mg/0.3ml syringe SUBCUT SCH ×2 (07:31→20:59)
[2022-04-19] MEDS: enoxaparin 40mg/0.4ml syringe SUBCUT SCH ×2 (07:31→20:59)
[2022-04-19] MEDS: finasteride 5mg tablet PO SCH (07:31)
[2022-04-19] MEDS: K and/or MAG REPLACEMENT MC SCH ×2 (08:00→20:00)
[2022-04-19 08:33] LABS: D-DIMER 2.63 MG/L FEU (0-0.50)
[2022-04-19 08:55] LABS: ALANINE AMINOTRANSFERASE 32 U/L (12-78); ALBUMIN 2.1 G/DL (3.4-5.0); ALBUMIN/GLOBULIN RATIO 0.6 (1.1-1.5); ALKALINE PHOSPHATASE 67 IU/L (46-116); ANION GAP 8 (8-16); ASPARTATE AMINO TRANSFERASE 50 U/L (10-37); BILIRUBIN,TOTAL 0.7 MG/DL (0.1-1.0); BLOOD UREA NITROGEN 18 MG/DL (7-18); BUN/CREATININE RATIO 16.5 (5.4-32.0); CALCIUM 8.4 MG/DL (8.5-10.1); CHLORIDE 103 MMOL/L (99-107); CREATININE 1.09 MG/DL (0.60-1.10); GLUCOSE 92 MG/DL (70-104); POTASSIUM 3.5 MMOL/L (3.5-5.1); SODIUM 137 MMOL/L (135-145); TOTAL CARBON DIOXIDE 26.4 MMOL/L (24-32); TOTAL PROTEIN 5.9 G/DL (6.4-8.2); eGFR 66 ML/MIN
[2022-04-19 09:29] LABS: BASOPHILS # (AUTO) 0.1 X10'3 (0-0.2); BASOPHILS % (AUTO) 0.4 % (0-1); EOSINOPHILS # (AUTO) 0.2 X10'3 (0-0.9); EOSINOPHILS % (AUTO) 1.4 % (0-6); HEMATOCRIT 33.6 % (42.0-52.0); HEMOGLOBIN 11.3 g/dl (14.0-17.9); LYMPHOCYTES # (AUTO) 0.9 X10'3 (1.1-4.8); LYMPHOCYTES % (AUTO) 6.9 % (21-51); MEAN CORPUSCULAR HEMOGLOBIN 29.5 PG (27.0-31.0); MEAN CORPUSCULAR HGB CONC 33.6 g/dL (33.0-36.5); MEAN CORPUSCULAR VOLUME 87.8 FL (78-98); MEAN PLATELET VOLUME 7.8 FL (7.4-10.4); MONOCYTES # (AUTO) 1.3 X10'3 (0-0.9); MONOCYTES % (AUTO) 9.5 % (2-12); NEUTROPHILS # (AUTO) 11.2 X10'3 (1.8-7.7); NEUTROPHILS % (AUTO) 81.8 % (42-75); PLATELET COUNT 449 X10'3 (140-440); RED BLOOD COUNT 3.83 X10'6 (4.70-6.10); RED CELL DISTRIBUTION WIDTH 14.9 % (11.5-14.5); WHITE BLOOD COUNT 13.6 X10'3 (4.5-11.0)
--- NOTE | 2022-04-19 09:37 | NUR ---
Reassessment: Pt found to be COVID positive 04/18 per EMR. PO intake has significantly declined since last RD assessment with average 53% PO intake of four meals however has refused four meals. Received fax from RN stating pt requesting Ensure. Recommend Ensure Enlive TID to optimal nutrition, pending physician approval in EMR. [facility] 04/16. Will continue to follow closely and monitor need for further nutrition intervention. Recommendations: 1. Continue heart healthy diet 2. Yogurt WB, cottage cheese WL, smoothie WS 3. Ensure Enlive TID, pending physician approval in EMR 4. Bowel care per rx 5. Scaled wt this admit; subsequent weekly scaled weights Addendum: 04/19/22 at [address] Amended: Links added.
[2022-04-19] MEDS: lactose-reduced food (Ensure Enlive) - 237ml bottle PO SCH ×2 (13:00→18:40)
[2022-04-19 13:20] LABS: LACTATE DEHYDROGENASE 301 U/L (85-227)
--- NOTE | 2022-04-19 17:44 | NUR ---
I called pharmacy to let them know that Dr. Lozada requesting the Gentamycin trough level for tomorrow at 07:30 am not tonight
[2022-04-19] MEDS ORDERED: MESSAGE TO NURSING IV ONE (19:30)
[2022-04-19] MEDS: atorvastatin 10mg tablet PO SCH (20:58)
[2022-04-20] VITALS (7 sets, daily range): BP systolic 104–169; BP diastolic 57–121
[2022-04-20] MEDS: cefazolin/dext.iso 2gm/100ml 100 ML IV SCH ×3 (00:01→16:09)
[2022-04-20 05:57] LABS: BASOPHILS # (AUTO) 0.1 X10'3 (0-0.2); BASOPHILS % (AUTO) 0.5 % (0-1); EOSINOPHILS # (AUTO) 0.2 X10'3 (0-0.9); EOSINOPHILS % (AUTO) 1.3 % (0-6); HEMATOCRIT 33.4 % (42.0-52.0); HEMOGLOBIN 11.2 g/dl (14.0-17.9); LYMPHOCYTES % (AUTO) 7.7 % (21-51); MEAN CORPUSCULAR HEMOGLOBIN 29.5 PG (27.0-31.0); MEAN CORPUSCULAR HGB CONC 33.6 g/dL (33.0-36.5); MEAN CORPUSCULAR VOLUME 87.7 FL (78-98); MEAN PLATELET VOLUME 7.7 FL (7.4-10.4); MONOCYTES # (AUTO) 1.4 X10'3 (0-0.9); MONOCYTES % (AUTO) 10.7 % (2-12); NEUTROPHILS # (AUTO) 10.3 X10'3 (1.8-7.7); NEUTROPHILS % (AUTO) 79.8 % (42-75); PLATELET COUNT 432 X10'3 (140-440); RED CELL DISTRIBUTION WIDTH 14.6 % (11.5-14.5); WHITE BLOOD COUNT 12.9 X10'3 (4.5-11.0)
[2022-04-20 05:59] LABS: D-DIMER 2.43 MG/L FEU (0-0.50)
[2022-04-20 06:11] LABS: ALANINE AMINOTRANSFERASE 17 U/L (12-78); ALBUMIN/GLOBULIN RATIO 0.5 (1.1-1.5); ALKALINE PHOSPHATASE 65 IU/L (46-116); ANION GAP 6 (8-16); ASPARTATE AMINO TRANSFERASE 36 U/L (10-37); BILIRUBIN,TOTAL 0.7 MG/DL (0.1-1.0); BLOOD UREA NITROGEN 16 MG/DL (7-18); BUN/CREATININE RATIO 13.7 (5.4-32.0); CALCIUM 8.1 MG/DL (8.5-10.1); CHLORIDE 103 MMOL/L (99-107); CREATININE 1.17 MG/DL (0.60-1.10); GLUCOSE 98 MG/DL (70-104); MAGNESIUM 2.1 MG/DL (1.5-2.4); POTASSIUM 3.4 MMOL/L (3.5-5.1); SODIUM 136 MMOL/L (135-145); TOTAL CARBON DIOXIDE 27.2 MMOL/L (24-32); TOTAL PROTEIN 5.7 G/DL (6.4-8.2); eGFR 60 ML/MIN
--- NOTE | 2022-04-20 06:39 | NUR ---
Patient in room PCU 3008. I have received report from LINDSAY Hernandes and had the opportunity to ask questions and assume patient care.
--- NOTE | 2022-04-20 06:40 | NUR ---
Problems reprioritized. Patient report given, questions answered & plan of care reviewed with LINDSAY Dewitt.
[2022-04-20] MEDS ORDERED: MESSAGE TO NURSING IV ONE (07:30)
[2022-04-20] MEDS: lactose-reduced food (Ensure Enlive) - 237ml bottle PO SCH ×3 (08:00→17:46)
[2022-04-20] MEDS: K and/or MAG REPLACEMENT MC SCH ×3 (08:00→20:00)
[2022-04-20] MEDS: multivitamins, therapeutics tablet PO SCH (08:33)
[2022-04-20] MEDS: aspirin 81mg, enteric-coated 1 TAB TABLET.DR PO SCH (08:33)
[2022-04-20] MEDS: finasteride 5mg tablet PO SCH (08:33)
[2022-04-20] MEDS: cholecalciferol (vitamin D3) 1,000 unit (25mcg) tablet PO SCH (08:33)
[2022-04-20] MEDS: busPIRone 5mg tablet PO SCH ×2 (08:33→21:12)
[2022-04-20] MEDS: rifampin 300mg capsule PO SCH ×3 (08:33→21:12)
[2022-04-20] MEDS: enoxaparin 40mg/0.4ml syringe SUBCUT SCH ×2 (08:34→21:14)
[2022-04-20] MEDS: enoxaparin 30mg/0.3ml syringe SUBCUT SCH ×2 (08:34→21:13)
[2022-04-20] MEDS: losartan 25mg tablet PO SCH (09:02)
[2022-04-20] MEDS ORDERED: magnesium Cl slow-release 64mg tablet PO PRN (10:05)
[2022-04-20] MEDS ORDERED: potassium CL 10mEq/100ml bag 100 ML IV PRN (10:05)
[2022-04-20] MEDS ORDERED: magnesium 2GM in 50ml NS 50 ML IV PRN (10:05)
[2022-04-20] MEDS ORDERED: POTASSIUM BICARB 20meq eff tab 20 MEQ TABLET.EFF PO PRN (10:05)
[2022-04-20] MEDS ORDERED: magnesium 4gm in 100ml NS 100 ML IV PRN (10:05)
[2022-04-20] MEDS: GENTAMICIN IV SCH ×2 (10:07→21:12)
[2022-04-20] MEDS: NORMAL SALINE IV SCH ×2 (10:07→21:12)
[2022-04-20] MEDS: POTASSIUM BICARB 20meq eff tab 20 MEQ TABLET.EFF PO PRN ×3 (11:07→21:13)
--- NOTE | 2022-04-20 18:22 | NUR ---
Problems reprioritized. Patient report given, questions answered & plan of care reviewed with LINDSAY Jack.
[2022-04-20] MEDS: atorvastatin 10mg tablet PO SCH (21:12)
[2022-04-21] MEDS: cefazolin/dext.iso 2gm/100ml 100 ML IV SCH ×4 (00:30→23:55)
[2022-04-21 02:00] VITALS: BP 105/51
[2022-04-21 06:09] LABS: BASOPHILS # (AUTO) 0.1 X10'3 (0-0.2); BASOPHILS % (AUTO) 0.5 % (0-1); EOSINOPHILS # (AUTO) 0.1 X10'3 (0-0.9); EOSINOPHILS % (AUTO) 0.9 % (0-6); HEMATOCRIT 32.1 % (42.0-52.0); HEMOGLOBIN 10.7 g/dl (14.0-17.9); LYMPHOCYTES % (AUTO) 6.8 % (21-51); MEAN CORPUSCULAR HEMOGLOBIN 29.2 PG (27.0-31.0); MEAN CORPUSCULAR HGB CONC 33.3 g/dL (33.0-36.5); MEAN CORPUSCULAR VOLUME 87.8 FL (78-98); MEAN PLATELET VOLUME 7.8 FL (7.4-10.4); MONOCYTES # (AUTO) 1.7 X10'3 (0-0.9); MONOCYTES % (AUTO) 11.9 % (2-12); NEUTROPHILS # (AUTO) 11.2 X10'3 (1.8-7.7); NEUTROPHILS % (AUTO) 79.9 % (42-75); PLATELET COUNT 431 X10'3 (140-440); RED BLOOD COUNT 3.65 X10'6 (4.70-6.10); RED CELL DISTRIBUTION WIDTH 14.6 % (11.5-14.5)
[2022-04-21 06:11] LABS: D-DIMER 2.54 MG/L FEU (0-0.50)
[2022-04-21 06:24] LABS: ALANINE AMINOTRANSFERASE 15 U/L (12-78); ALBUMIN 1.9 G/DL (3.4-5.0); ALBUMIN/GLOBULIN RATIO 0.5 (1.1-1.5); ALKALINE PHOSPHATASE 62 IU/L (46-116); ANION GAP 5 (8-16); ASPARTATE AMINO TRANSFERASE 38 U/L (10-37); BILIRUBIN,TOTAL 0.5 MG/DL (0.1-1.0); BLOOD UREA NITROGEN 19 MG/DL (7-18); BUN/CREATININE RATIO 17.4 (5.4-32.0); CALCIUM 8.4 MG/DL (8.5-10.1); CHLORIDE 104 MMOL/L (99-107); CREATININE 1.09 MG/DL (0.60-1.10); GLUCOSE 101 MG/DL (70-104); MAGNESIUM 2.1 MG/DL (1.5-2.4); POTASSIUM 3.9 MMOL/L (3.5-5.1); SODIUM 136 MMOL/L (135-145); TOTAL CARBON DIOXIDE 27.4 MMOL/L (24-32); TOTAL PROTEIN 5.7 G/DL (6.4-8.2); eGFR 66 ML/MIN
--- NOTE | 2022-04-21 06:24 | NUR ---
Patient in room PCU 3008. I have received report from LINDSAY Cruz and had the opportunity to ask questions and assume patient care.
[2022-04-21 07:31] VITALS: BP 140/75
[2022-04-21] MEDS: K and/or MAG REPLACEMENT MC SCH ×4 (08:00→20:00)
[2022-04-21] MEDS: cholecalciferol (vitamin D3) 1,000 unit (25mcg) tablet PO SCH (08:11)
[2022-04-21] MEDS: aspirin 81mg, enteric-coated 1 TAB TABLET.DR PO SCH (08:12)
[2022-04-21] MEDS: finasteride 5mg tablet PO SCH (08:12)
[2022-04-21] MEDS: NORMAL SALINE IV SCH ×2 (08:12→20:59)
[2022-04-21] MEDS: rifampin 300mg capsule PO SCH ×3 (08:12→21:00)
[2022-04-21] MEDS: GENTAMICIN IV SCH ×2 (08:12→20:59)
[2022-04-21] MEDS: losartan 25mg tablet PO SCH (08:12)
[2022-04-21] MEDS: multivitamins, therapeutics tablet PO SCH (08:12)
[2022-04-21] MEDS: busPIRone 5mg tablet PO SCH ×2 (08:12→21:00)
[2022-04-21] MEDS: enoxaparin 30mg/0.3ml syringe SUBCUT SCH ×2 (08:13→21:01)
[2022-04-21] MEDS: enoxaparin 40mg/0.4ml syringe SUBCUT SCH ×2 (08:13→21:01)
[2022-04-21] MEDS: lactose-reduced food (Ensure Enlive) - 237ml bottle PO SCH ×3 (08:14→17:44)
[2022-04-21 11:00] VITALS: BP 117/61
--- NOTE | 2022-04-21 14:49 | NUR ---
x1 unit blood transfusion started.
[2022-04-21 15:00] VITALS: BP 125/66
[2022-04-21 18:00] VITALS: BP 139/69
--- NOTE | 2022-04-21 18:32 | NUR ---
Problems reprioritized. Patient report given, questions answered & plan of care reviewed with LINDSAY Calle.
[2022-04-21] MEDS: atorvastatin 10mg tablet PO SCH (21:00)
[2022-04-21 22:00] VITALS: BP 140/80
[2022-04-22 06:00] VITALS: BP 123/68
[2022-04-22 06:21] LABS: BASOPHILS # (AUTO) 0.1 X10'3 (0-0.2); EOSINOPHILS # (AUTO) 0.1 X10'3 (0-0.9); EOSINOPHILS % (AUTO) 0.8 % (0-6); HEMATOCRIT 31.4 % (42.0-52.0); HEMOGLOBIN 10.2 g/dl (14.0-17.9); LYMPHOCYTES % (AUTO) 6.7 % (21-51); MEAN CORPUSCULAR HEMOGLOBIN 28.4 PG (27.0-31.0); MEAN CORPUSCULAR HGB CONC 32.4 g/dL (33.0-36.5); MEAN CORPUSCULAR VOLUME 87.6 FL (78-98); MEAN PLATELET VOLUME 7.6 FL (7.4-10.4); MONOCYTES # (AUTO) 1.4 X10'3 (0-0.9); MONOCYTES % (AUTO) 9.4 % (2-12); NEUTROPHILS # (AUTO) 11.9 X10'3 (1.8-7.7); NEUTROPHILS % (AUTO) 82.1 % (42-75); PLATELET COUNT 438 X10'3 (140-440); RED BLOOD COUNT 3.58 X10'6 (4.70-6.10); RED CELL DISTRIBUTION WIDTH 14.5 % (11.5-14.5); WHITE BLOOD COUNT 14.5 X10'3 (4.5-11.0)
--- NOTE | 2022-04-22 06:34 | NUR ---
Patient in room PCU 3008. I have received report from LINDSAY Calle and had the opportunity to ask questions and assume patient care.
[2022-04-22 06:47] LABS: ALANINE AMINOTRANSFERASE 13 U/L (12-78); ALBUMIN 1.9 G/DL (3.4-5.0); ALBUMIN/GLOBULIN RATIO 0.5 (1.1-1.5); ALKALINE PHOSPHATASE 61 IU/L (46-116); ANION GAP 6 (8-16); ASPARTATE AMINO TRANSFERASE 30 U/L (10-37); BILIRUBIN,TOTAL 0.4 MG/DL (0.1-1.0); BLOOD UREA NITROGEN 16 MG/DL (7-18); BUN/CREATININE RATIO 14.8 (5.4-32.0); C-REACTIVE PROTEIN 12.43 MG/DL (0.0-0.5); CALCIUM 8.3 MG/DL (8.5-10.1); CHLORIDE 104 MMOL/L (99-107); CREATININE 1.08 MG/DL (0.60-1.10); GLUCOSE 99 MG/DL (70-104); POTASSIUM 4.1 MMOL/L (3.5-5.1); SODIUM 138 MMOL/L (135-145); TOTAL CARBON DIOXIDE 27.8 MMOL/L (24-32); TOTAL PROTEIN 5.7 G/DL (6.4-8.2); eGFR 66 ML/MIN
[2022-04-22] MEDS: K and/or MAG REPLACEMENT MC SCH ×2 (08:00)
[2022-04-22] MEDS: lactose-reduced food (Ensure Enlive) - 237ml bottle PO SCH ×2 (08:00→13:00)
[2022-04-22] MEDS: GENTAMICIN IV SCH (08:46)
[2022-04-22] MEDS: cefazolin/dext.iso 2gm/100ml 100 ML IV SCH (08:46)
[2022-04-22] MEDS: NORMAL SALINE IV SCH (08:46)
[2022-04-22] MEDS: multivitamins, therapeutics tablet PO SCH (08:47)
[2022-04-22] MEDS: aspirin 81mg, enteric-coated 1 TAB TABLET.DR PO SCH (08:47)
[2022-04-22] MEDS: rifampin 300mg capsule PO SCH ×2 (08:47→14:19)
[2022-04-22] MEDS: busPIRone 5mg tablet PO SCH (08:48)
[2022-04-22] MEDS: losartan 25mg tablet PO SCH (08:48)
[2022-04-22] MEDS: cholecalciferol (vitamin D3) 1,000 unit (25mcg) tablet PO SCH (08:48)
[2022-04-22] MEDS: finasteride 5mg tablet PO SCH (08:49)
[2022-04-22] MEDS: enoxaparin 30mg/0.3ml syringe SUBCUT SCH (08:50)
[2022-04-22] MEDS: enoxaparin 40mg/0.4ml syringe SUBCUT SCH (08:51)
--- NOTE | 2022-04-22 09:28 | NUR ---
Reassessment: PO intake of meals has significantly declined, documented with mostly 0% PO intake of meals. Pt now receiving an Ensure Enlive TID of which pt averaged 75% of the first five ONS though with 0% the three following. Pending documentation of any PO intake for today. See below for additional nutrition intervention recommendations that were d/w dietary in hopes of optimizing PO intake. Per EMR pt on room air. [facility] 04/21. Will continue to follow closely. Recommendations: 1. Liberalize to regular diet in view of poor PO intake of meals 2. Yogurt WB, cottage cheese WL, smoothie WS 3. Ensure Enlive TID 4. Encourage PO intake; consider nutrition support if PO intake does not improve 5. Bowel care per rx 6. Scaled wt this admit; subsequent weekly scaled weights Addendum: 04/22/22 at [address] Amended: Links added.
[2022-04-22 11:00] VITALS: BP 95/63
--- NOTE | 2022-04-22 16:57 | NUR ---
Patient was discharged at 1600 with instructions and verbalizing understanding of instructions in wheelchair going via medivan to [facility]. The PIV and tele monitor have been removed. Report has been called in to receiving facility. Patient is stable and appropriate for discharge.
--- NOTE | 2022-04-22 16:59 | NUR ---
Today we were out of ratio and for that reason medication administration and patient care were delayed.
== END 2022-04-22 16:07 | DRG 280 ==
LOC: ER 08:34 → ED HOLD 09:40 → PCU 3S 19:20
PROVIDERS: ADMIT Family Medicine; ATTEND Family Medicine
PROC: B24CZZ4 Ultrasonography of Pericardium, Transesophageal (ICD-10-PCS; 2022-04-13)
PROC: BW241ZZ Computerized Tomography (CT Scan) of Chest and Abdomen using Low Osmolar Contrast (ICD-10-PCS; 2022-04-14)
PROC: 02HV33Z Insertion of Infusion Device into Superior Vena Cava, Percutaneous Approach (ICD-10-PCS; principal; 2022-04-15)
PROC: B548ZZA Ultrasonography of Superior Vena Cava, Guidance (ICD-10-PCS; 2022-04-15)
DX: T82.6XXA Infection and inflammatory reaction due to cardiac valve prosthesis, initial encounter (principal); A41.1 Sepsis due to other specified staphylococcus; I21.A1 Myocardial infarction type 2; I33.0 Acute and subacute infective endocarditis; U07.1 COVID-19; N17.0 Acute kidney failure with tubular necrosis; I50.30 Unspecified diastolic (congestive) heart failure; D75.839 Thrombocytosis, unspecified; D64.9 Anemia, unspecified; I25.10 Atherosclerotic heart disease of native coronary artery without angina pectoris; F41.9 Anxiety disorder, unspecified; Z96.642 Presence of left artificial hip joint; E78.5 Hyperlipidemia, unspecified; Y83.8 Other surgical procedures as the cause of abnormal reaction of the patient, or of later complication, without mention of misadventure at the time of the procedure; I11.0 Hypertensive heart disease with heart failure; E78.00 Pure hypercholesterolemia, unspecified; Z79.02 Long term (current) use of antithrombotics/antiplatelets; Z95.3 Presence of xenogenic heart valve; Z86.73 Personal history of transient ischemic attack (TIA), and cerebral infarction without residual deficits; Z95.1 Presence of aortocoronary bypass graft; Z85.828 Personal history of other malignant neoplasm of skin; Z88.0 Allergy status to penicillin; Z88.8 Allergy status to other drugs, medicaments and biological substances; Z79.899 Other long term (current) drug therapy; Z79.82 Long term (current) use of aspirin; Z98.49 Cataract extraction status, unspecified eye; Y92.89 Other specified places as the place of occurrence of the external cause
CPT/HCPCS: 36415; 36573; 71046; 71250; 71275; 73552; 74176; 80053; 81001; 82150; 82948; 83605; 83615; 83690; 83735; 83880; 84132; 84145; 84484; 85025; 85379; 85610; 85730; 86140; 87040; 87077; 87186; 87635; 93005; 93306; 93312; 97116; 97161; 97530; 99285; A4615; A6258; C1751; G0378; J0690; J1200; J1580; J1650; J1940; J2060; J2274; J2405; J2930; J3490; J7030; J7040; Q9967

== ENCOUNTER 2023-10-10 09:10 | Day surgery (SDC) | payer MEDICARE, BC ==
[~2023-10-10] VITALS: Ht 175.3 cm; Wt 73.3 kg
[2023-10-10] VITALS (8 sets, daily range): BP systolic 157–186; BP diastolic 54–96; PULSE 54–59; RESP 16–18; TEMP 97.6; O2SAT 96–98
[~2023-10-10 09:10] MED LIST changes: -ASPI-1265 PO; -ATOR10TA PO; +ATOR20TA66 PO; -CELE-193 PO; +CHOL20004 PO; -CHOL400T PO; -CLOP75TA15 PO; +CLOP75TA34 PO; +DIVA500T9 PO; +FINA5TAB11 PO; -LEVO500T90 PO; +LOSA25TA41 PO; -ZOLP10TA PO; +ZOLP5TAB2 PO
[2023-10-10] MEDS ORDERED: SILD100T70 PO (09:59)
[2023-10-10] MEDS ORDERED: GABA-530 PO (09:59)
[2023-10-10 13:37] LABS: GLUCOSE,CSF 56 MG/DL (40-75); TOTAL PROTEIN,CSF 52 MG/DL (30-60)
[2023-10-10 13:43] LABS: APPEARANCE,CSF CLEAR; CSF RBC 15 /CU MM (0); CSF SUPERNATANT COLOR COLORLESS; CSF VOLUME 15.5 ML; CSF WBC CT 0 /CU MM (0-5); TUBE# COUNTED 4
== END 2023-10-10 14:25 | disposition home or self-care (01) ==
LOC: RAD 09:10 → SSTAY O 14:25
PROVIDERS: ATTEND Psychiatry & Neurology Neurology
DX: R26.89 Other abnormalities of gait and mobility (principal); G91.9 Hydrocephalus, unspecified; G31.84 Mild cognitive impairment of uncertain or unknown etiology; I25.10 Atherosclerotic heart disease of native coronary artery without angina pectoris; E78.5 Hyperlipidemia, unspecified; I16.1 Hypertensive emergency; Z79.899 Other long term (current) drug therapy; Z79.01 Long term (current) use of anticoagulants; Z88.0 Allergy status to penicillin; Z88.1 Allergy status to other antibiotic agents; Z88.5 Allergy status to narcotic agent; Z88.8 Allergy status to other drugs, medicaments and biological substances; Z91.013 Allergy to seafood; Z98.890 Other specified postprocedural states; Z95.1 Presence of aortocoronary bypass graft; Z95.2 Presence of prosthetic heart valve; Z96.642 Presence of left artificial hip joint; Z85.828 Personal history of other malignant neoplasm of skin; Z86.73 Personal history of transient ischemic attack (TIA), and cerebral infarction without residual deficits; Z82.49 Family history of ischemic heart disease and other diseases of the circulatory system
CPT/HCPCS: 62328; 82164; 82945; 84157; 86592; 86617; 87899; 89051

== ENCOUNTER 2023-11-27 12:24 | Outpatient (CLI) | payer MEDICARE, BC ==
[2023-11-23 16:47] LABS: ALBUMIN 3.6 G/DL (3.4-5.0); ANION GAP 10 (8-16); BLOOD UREA NITROGEN 30 MG/DL (7-18); BUN/CREATININE RATIO 20.5 (10.0-20.0); CALCIUM 9.2 MG/DL (8.5-10.1); CHLORIDE 109 MMOL/L (99-107); CREATININE 1.46 MG/DL (0.60-1.10); GLUCOSE 80 MG/DL (70-104); POTASSIUM 4.1 MMOL/L (3.5-5.1); SODIUM 145 MMOL/L (135-145); TOTAL CARBON DIOXIDE 26.1 MMOL/L (24-32); eGFR 47 ML/MIN
[~2023-11-27 12:24] MED LIST changes: +GABA-530 PO; -LOSA25TA41 PO; +SILD100T70 PO
[2023-11-27] MEDS ORDERED: iohexol 300mg/ml 100ml inj. ONE (12:36)
== END 2023-11-27 23:59 | disposition home or self-care (01) ==
LOC: RAD 12:24
PROVIDERS: ATTEND Student in an Organized Health Care Education/Training Program
DX: Z01.818 Encounter for other preprocedural examination (principal); N28.1 Cyst of kidney, acquired; N20.0 Calculus of kidney; N40.0 Benign prostatic hyperplasia without lower urinary tract symptoms
CPT/HCPCS: 36415; 74177; 80048; J3490; Q9967